=== PATIENT | male | born 1980 | race African-American/Black ===

== ENCOUNTER 2023-03-18 15:50 | Emergency (ER) | payer SELFPAY ==
[2023-03-18] MEDS ORDERED: Ibuprofen 800 MG TAB ONE (16:44)
[2023-03-18] MEDS ORDERED: Ondansetron ODT 4 MG TAB ONE (16:44)
[2023-03-18] MEDS ORDERED: Acetaminophen 500 MG TAB ONE ×2 (17:46)
[2023-03-18 18:01] LABS: SARS-CoV-2 NAA Rapid Test DETECTED (NotDetected)
== END 2023-03-18 18:39 | disposition home or self-care (01) ==
LOC: ERS 15:50
DX: U07.1 COVID-19 (principal); R11.2 Nausea with vomiting, unspecified; F17.210 Nicotine dependence, cigarettes, uncomplicated
CPT/HCPCS: 99284; Q0162

== ENCOUNTER 2024-04-19 09:01 | Emergency (ER) | payer SELFPAY ==
[2024-04-19 09:48] LABS: #Basophils Less than 0.03 10x3/uL (0.0-0.2); %Basophils 0.5 % (0.0-1.0); %Eosinophils 2.1 % (0.0-10.0); %Monocytes 9.6 % (0.0-10.0); %Neutrophils 35.8 % (42.0-75.0); Hematocrit 40.8 % (42.0-52.0); Hemoglobin 13.9 g/dL (14.0-18.0); Mean Corpuscular HGB CONC 34.1 g/dL (32.0-36.0); Mean Corpuscular Hemoglobin 28.8 pg (27.0-31.0); Mean Corpuscular Volume 84.5 fL (78.0-98.0); Mean Platelet Volume 10.8 fL (7.4-10.4); Platelet Count 231 10x3/uL (130-400); RBC Distribution Width 12.6 % (11.5-14.5); Red Blood Cell (RBC) Count 4.83 mill/uL (4.70-6.10)
[2024-04-19] MEDS ORDERED: Ketorolac Tromethamine 30 MG (1 mL) VIAL ONE (10:00)
[2024-04-19 10:01] LABS: ALT (SGPT) 20 U/L (8-55); AST (SGOT) 18 U/L (5-34); Alkaline Phosphatase 100 U/L (40-110); Anion Gap 13 mmol/L (10-20); BUN (Urea Nitrogen) 11 mg/dL (8.9-20.6); Bilirubin, Total 0.3 mg/dL (0.2-1.2); Calc. Creatinine Clearance 0 mL/min (70-130); Calcium 9.2 mg/dL (7.8-10.44); Carbon Dioxide 24 mmol/L (22-29); Chloride 109 mmol/L (98-107); Estimated GFR 107; Globulin 3.3 g/dL (2.4-3.5); Glucose 102 mg/dL (70-105); Lipase 22 U/L (8-78); Magnesium 2.3 mg/dL (1.6-2.6); Potassium 3.9 mmol/L (3.5-5.1); Protein, Total 7.3 g/dL (6.0-8.3); Sodium 142 mmol/L (136-145)
[2024-04-19 11:15] LABS: Troponin I Less than 0.010 ng/mL (< 0.028)
== END 2024-04-19 12:14 | disposition home or self-care (01) ==
LOC: ERS 09:01
DX: R07.89 Other chest pain (principal); F17.210 Nicotine dependence, cigarettes, uncomplicated
CPT/HCPCS: 71045; 80053; 83690; 83735; 84484; 85025; 93005; 96374; J1885

== ENCOUNTER 2024-05-28 07:36 | Emergency (ER) | payer SELFPAY | END 2024-05-28 09:17 | disposition home or self-care (01) | LOC: ERS 07:36 | DX: R42 Dizziness and giddiness (principal); R29.700 NIHSS score 0; F17.210 Nicotine dependence, cigarettes, uncomplicated | CPT/HCPCS: 36416; 93005; 99284 ==